=== PATIENT | female | born 2000 | race Caucasian/White ===

== ENCOUNTER 2018-07-09 09:38 | Emergency (ER) | payer BC ==
--- NOTE | 2018-07-09 09:51 | EDPHY ---
General - History Smoking Status: Never smoked Time Seen by Provider: 07/09/18 09:51 Narrative: CLINICAL IMPRESSION: Influenza a ASSESSMENT/PLAN: Patient is a 17-year-old female with a significant medical history of asthma and Lyme disease who presents with complaints of runny nose, congestion, sore throat, cough, nausea and vomiting. Patient is afebrile, she is tired appearing however not toxic-appearing. Her vital signs were reviewed, she was taken arrival at a rate of 133. Laboratory studies were obtained including basic metabolic panel which revealed no evidence of significant metabolic abnormality or acute kidney injury. Rapid strep negative, culture pending. Influenza A positive CXR without evidence of consolidation or pneumonia. History and physical examination is most consistent with influenza a. There is no evidence of significant sinusitis, pharyngitis, meningitis, pneumonia or serious bacterial illness. The patient was given IV fluids, Zofran, Tylenol and Toradol with improvement of her symptoms. The patient will continue to be treated symptomatically and is instructed to followup with PCP for reevaluation within the next 2-3 days. On re-examination prior to discharge this patient is stable and well-appearing, states that she is feeling better. She was noted to be tachycardic on arrival, this did improve after 2 L of fluid. I do not suspect sepsis or serious bacterial illness. The patient does not have a primary care provider in [facility], I have given her a referral and she understands the importance of follow-up. Strict return precautions discussed-she will return for significantly worsening symptoms, high fevers, neck stiffness, difficulty swallowing, chest pain, shortness of breath, signs of dehydration or for any other concerning symptom. The patient verbalizes understanding and they are in agreement with this plan. DIFFERENTIAL DX: Differential diagnosis including but not limited to and in no particular order influenza, pneumonia, asthma exacerbation, sinusitis, meningitis, pharyngitis, sepsis. ED COURSE: 1032: Influenza a positive, discussed with Dr. Curry. In light of underlying asthma, will treat with Tamiflu. 1059: On repeat examination the patient reports feeling mildly better, heart rate still 122. Will give an additional L. 1245: On repeat exam the patient states she is feeling much better, heart rate is 108. CHIEF COMPLAINT: Runny nose, congestion, sore throat, cough, nausea and vomiting HPI: Patient is a 17-year-old female with a history of asthma and Lyme disease who presents to the emergency department with a constellation of complaints to include runny nose, congestion, sore throat, cough, nausea and vomiting. Patient reports on Tuesday she started to feel generally unwell, no specific symptoms. Tuesday she started to develop fever, chills, runny nose, congestion, cough, nausea and vomiting. Her symptoms have progressively worsened throughout the weekend, she has been unable to keep anything down for several days. Patient does have a history of asthma, has been using her albuterol more frequently and is about to run out of her refill. Patient denies any headache, ear pain, neck stiffness, chest pain or shortness of breath. She describes her throat as feeling very dry, most painful when she coughs. Her cough is also dry and nonproductive. She denies any rash. She has had an upset stomach but denies any abdominal pain. She denies any urinary symptoms and bowel movements have been normal. Patient is not taking any Tylenol or ibuprofen today. [place], gets her refills from urgent care when needed. PMH: Asthma, Lyme disease Pertinent Past Surgical History: Denies Family History: Noncontributory Social History: Occasional mid distal marijuana, denies cigarette smoking, rare alcohol use REVIEW OF SYSTEMS: All other systems negative Constitutional: Fever, chills, appetite change Eyes: No discharge, vision change ENT: Runny nose, congestion, sore throat. Cardiovascular: No chest pain, no palpitations. Respiratory: Cough, no shortness of breath. Gastrointestinal: Nausea, vomiting. No abdominal pain or diarrhea. Genitourinary: No hematuria, dysuria, flank pain, pelvic pain. Musculoskeletal: No back pain, joint swelling, joint pain, myalgias. Skin: No rashes, color change. Neurological: No headache, dizziness, weakness. PHYSICAL EXAM: General Appearance: Well-developed, tired appearing however not toxic- appearing. HENT: Normocephalic, atraumatic. Bilateral external ears are normal. Bilateral tympanic membranes are normal with pearly coombs reflex. Nares are clear, mucosa is pink. Lips are chapped. Oropharynx is clear, mucosa is mildly dry, uvula is midline. Tonsils are mildly enlarged symmetrically, erythematous however no exudate. There is no trismus, her phonation is normal. The dentition is normal. Eyes: PERRLA, no acute vision change, nystagmus, swelling, discharge, pain or photosensitivity. Conjunctiva pink, no pallor or injection. Neck: Supple, nontender, no lymphadenopathy, no midline pain, FROM, no meningismus. Respiratory: Breath sounds are diminished globally, faint expiratory wheeze. No rhonchi or rales. Cardiac: Tachycardic with a rate of 130, no murmurs or gallops. Gastrointestinal: Abdomen is soft, nontender, bowel sounds normal, no masses/ hernia, no rigidity, guarding or focal peritoneal findings. Neurological: Alert and oriented x 3, CN 2-12 grossly intact, normal gait no ataxia, DTR's intact, normal sensation and strength Skin: Warm, dry, no rashes, no nodules on palpation. Musculoskeletal: Extremities are symmetrical, full range of motion, no tenderness, deformity, swelling, or erythema. Psychiatric: Patient is oriented X 3, there is no agitation. MEDICAL DECISION MAKING: Patient was seen independently. Secondary supervising physician at time of evaluation was Dr. Curry, he did not evaluate this patient. Diagnosis: Influenza a. New, requires workup Summary: See Assessment and Plan for summary of ED visit Clinical lab tests: ordered / reviewed. Independent visualization of images, tracing, or specimens: Yes. Decision to obtain medical records or history from someone other than the patient: No Review / Summarize previous medical records: None available Discussed patient with another provider: Yes, Dr. Curry Patient Progress: Stable, discharged . (Mitzi Faust) Medical Decision Making: Patient treated with Tamiflu because she has underlying diagnosis of asthma. ( Jasiel Curry) - Diagnostics Imaging Results: Imaging Impressions Chest X-Ray 07/09/18 10:05 Impression: Findings most consistent with bronchitis/airways disease are noted. - Objective Vital Signs: Initial Vital Signs Temperature (C) 37.4 C 07/09/18 09:41 Heart Rate 133 H 07/09/18 09:41 Respiratory Rate 18 07/09/18 09:41 Blood Pressure 126/73 H 07/09/18 09:41 O2 Sat (%) 94 07/09/18 09:41 O2 Delivery Mode Room Air Allergies/Adverse Reactions: No Known Allergies Allergy (Unverified 07/09/18 09:40) Home Medications: Medication Instructions Recorded Albuterol [Proventil Inhaler HFA 1 - 2 puffs IH Q4H #1 mdi 07/09/18 (*)] Ondansetron Odt [Zofran Odt] 4 mg PO Q8 PRN #5 tab 07/09/18 [facility] 1-35-28 Tablet 07/09/18 Oseltamivir Phosphate [Tamiflu] 75 mg PO BID 5 Days capsule 07/09/18 VYVANSE 07/09/18 Laboratory Results: Laboratory Results 07/09/18 10:30 07/09/18 07/09/18 07/09/18 Unknown 10:30 09:55 Sodium REJ Potassium REJ Chloride REJ Carbon Dioxide REJ Anion Gap REJ BUN REJ Creatinine REJ Estimated GFR REJ Glucose REJ Calcium REJ Nasal Influenza A PCR Nasal Influenza B PCR RSV (PCR) Group A Strep Screen NEGATIVE (NEGATIVE) Group A Strep DNA Pending 07/09/18 09:40 Sodium Potassium Chloride Carbon Dioxide Anion Gap BUN Creatinine Estimated GFR Glucose Calcium Nasal Influenza A PCR FLU A DETECTED H (NEGATIVE) Nasal Influenza B PCR NEGATIVE FOR FLU B (NEGATIVE) RSV (PCR) NEGATIVE FOR RSV (NEGATIVE) Group A Strep Screen Group A Strep DNA Medications Given: Discontinued Medications Acetaminophen (Tylenol) 1,000 mg PO EDNOW ONE Stop: 07/09/18 10:00 Last Admin: 07/09/18 11:08 Dose: 1,000 mg Albuterol (Proventil Neb) 3 ml IH EDNOW ONE Stop: 07/09/18 10:00 Last Admin: 07/09/18 10:26 Dose: 3 ml Sodium Chloride (Ns) 1,000 mls @ 0 mls/hr IV ONCE ONE PRN Reason: Wide Open Stop: 07/09/18 10:00 Last Admin: 07/09/18 10:26 Dose: 1,000 mls Sodium Chloride (Ns) 1,000 mls @ 0 mls/hr IV ONCE ONE PRN Reason: Wide Open Stop: 07/09/18 10:59 Last Admin: 07/09/18 11:12 Dose: 1,000 mls Ketorolac Tromethamine (Toradol) 15 mg IVP EDNOW ONE Stop: 07/09/18 11:57 Last Admin: 07/09/18 12:00 Dose: 15 mg Ondansetron HCl (Zofran) 4 mg IVP Q4 PRN PRN Reason: Nausea/Vomiting, Can't Take PO Stop: 01/05/19 09:58 Last Admin: 07/09/18 10:24 Dose: 4 mg Oseltamivir Phosphate (Tamiflu) 75 mg PO EDNOW ONE Stop: 07/09/18 10:57 Last Admin: 07/09/18 11:08 Dose: 75 mg Departure - Departure Disposition: Home, Routine, Self-Care Clinical Impression: Influenza A Condition: Good Instructions: Influenza (ED) Additional Instructions: DISCHARGE INSTRUCTIONS FROM YOUR DOCTOR Thank you for visiting our emergency department today. Please keep in mind that discharge from the emergency department does not mean that there is nothing wrong - it simply means that we have not identified an emergency condition that requires further evaluation or treatment in the hospital. You should always plan to follow up with primary care for re-evaluation of your condition in the next 2-3 days. Please establish care with a primary care provider while you are living in [place], you have been provided a referral. Plenty of fluids and rest. [id number] expectorants, decongestants, cough suppressants as directed on bottle. Tylenol or Motrin as needed for pain or fever. Tamiflu twice daily x 5 days. Follow up with PCP in 5 days if no better, return to ER for worsening of symptoms or for new symptoms or concerns. Zofran as needed for nausea. Rest, push non-diuretic, non-caffeinated fluids, consume a healthy diet, all to help support your immune system fight infection. Consider running a coolmist humidifier in the bedroom. Consider warm salt water gargles for sore throat. Consider over the counter saline nasal washes ie: Neilmed sinus rinse, [place] or [place]. Consider over the counter Mucinex for congestion and/or cough as directed. For pain control: You may take Tylenol, I recommend 500-1000 mg every 6-8 hours as needed. Take with food and a full glass of water. Stop taking if this is upsetting her stomach. Do not exceed 4000 mg in a 24 hr period. You may also take ibuprofen, recommend 400 mg every 6 hr. Take with food and a full glass of water. Stop taking if this upsets her stomach. Do not exceed 2400 mg in a 24 hr period. As discussed, in the setting of a viral illness, you may develop a secondary bacterial infection, requiring an antibiotic. Watch for new or changing symptoms ie: new ear pain or drainage, increasing cough, shortness of breath, high fever, or any other concerning symptoms. Schedule a follow-up appointment with your primary care physician in the next 2- 3 days for re-evaluation, sooner for any new concerns. Return for high fever, shaking chills, severe headache, facial redness or swelling, drainage from your ears, difficulty breathing or swallowing, throat tightness, drooling, change in voice, inability to open your mouth normally, severe neck pain, neck stiffness, shortness of breath, wheezing, noisy breathing , coughing up blood, chest pain, vomiting, diarrhea, bloody stools, decreased urine output or other concerns for dehydration, bloody urine, rash, dizziness, weakness, fainting, or for any other new, worsening or worrisome symptoms. People present with illnesses and injuries in different ways, and it is always possible that we have missed something. You may always return for re-evaluation if symptoms worsen or if they are not improving or if you develop new/different symptoms. Again, thank you for choosing our emergency department. We hope that you feel better. Referrals: Karlos Pierce DO [Doctor of Osteopathy] - 2-3 days, call for appt. (Please establish care with a primary care provider while you are living in [place].) Stand Alone Forms: School Excuse Prescriptions: Albuterol [Proventil Inhaler HFA (*)] 1 - 2 puffs IH Q4H #1 mdi Ondansetron Odt [Zofran Odt] 4 mg PO Q8 PRN #5 tab PRN Reason: Nausea/Vomiting, Can'T Take Po Oseltamivir Phosphate [Tamiflu] 75 mg PO BID 5 Days capsule
[2018-07-09] MEDS ORDERED: ALBUTEROL 3 ML DEYVIAL IH ONE (09:59)
[2018-07-09] MEDS ORDERED: NS 1,000 ML IV ONE ×2 (09:59→10:58)
[2018-07-09] MEDS ORDERED: ACETAMINOPHEN 500 MG TAB PO ONE (09:59)
[2018-07-09] MEDS ORDERED: ONDANSETRON 4 MG/2 ML VIAL IVP PRN (09:59)
[2018-07-09] MEDS ORDERED: OSELTAMIVIR PHOSPHATE 75 MG CAP PO ONE (10:56)
[2018-07-09 11:18] VITALS: BP 121/70
[2018-07-09] MEDS ORDERED: KETOROLAC 15 MG/1 ML SDV IVP ONE (11:56)
== END 2018-07-09 13:03 | disposition home or self-care (01) ==
DX: J10.1 Influenza due to other identified influenza virus with other respiratory manifestations (principal)
CPT/HCPCS: 96374; J1885; J2405; J7613